=== PATIENT | male | born 1960 | race Caucasian/White ===

== ENCOUNTER → 2018-07-13 | Outpatient (CLI) | payer OTHER ==
[~2018-07-13] VITALS: Ht 175.3 cm; Wt 81.2 kg
[~2018-07-13] MED LIST: ASPIR 8181 MG PO; FISH OIL 1,001000 M2 PO; GARLIC1 EACH PO; IBUPROFEN 200200 M1 PO; VITAMIN D3400 UNIT PO
--- NOTE | ~2018-07-13 | HPC ---
[facility] [address] PAIN MANAGEMENT CONSULTATION Name: BETTYE JUNE Amandeep Room #: REG Paul Dial.#: [id number] Admission: 07/13/18 Attend Phys: Prosper Mathews DO Discharge: Date of : 64 Report #: [id number] THIS REPORT FOR: //name// CC: Jose Enrique Mathews DATE OF SERVICE: 07/13/2018 CHIEF COMPLAINT: Low back pain, left lower extremity pain with paresthesias. HISTORY OF PRESENT ILLNESS: As you know, the patient is a 58-year-old male who complains of low back pain, left lower extremity pain with paresthesias that presented after doing wilton at his daughter's home on 07/07/2018. He denies any other injury or trauma. The patient was seen in our clinic in 2011, undergoing an epidural injection under fluoroscopic guidance with 100% improvement in overall pain. He has been in his normal state of health until this incident on 07/07/2018. He states he has been using an inversion table on a p.r.n. basis, but this has not improved his symptoms. Due to lack of improvement with conservative treatment options, the patient returned to our clinic per the request of his PCP to be evaluated for lumbar radiculopathy. The patient indicates pain is periodic, describes the pain as shooting, sharp, numbness and tingling. Places current pain score 4/10, daily average at 4/10, worst pain has been is 9/10. The patient states that bending over, lifting, twisting exacerbates symptoms. Standing and repositioning tends to improve pain as well as his inversion table. He has been referred back to our clinic to trial a lumbar epidural injection under fluoroscopic guidance to address lumbar radicular symptoms that are recurrent. PAST MEDICAL HISTORY: None. PAST SURGICAL HISTORY: None. SOCIAL HISTORY: The patient denies tobacco, IV or illicit drug use. Admits to approximately 3 alcoholic beverages per day. 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 He is unaccompanied today. He is not in litigation in regards to pain. He is not service worker's compensation. REVIEW OF SYSTEMS: Positive for low back pain, left lower extremity pain with paresthesias. All other review of systems negative per 12-point review of systems other than those listed in history of present illness. Pain impact score 18/70, mild interference of daily activities secondary to pain. [facility] [address] [place] [address] PAIN MANAGEMENT CONSULTATION Name: BETTYE JUNE [facility] [id number] Admission: 07/13/18 Attend Phys: Prosper Mathews DO Discharge: Date of : 64 Report #: [id number] ALLERGIES: NO REPORTED DRUG ALLERGIES. CURRENT MEDICATIONS: Ibuprofen 200 mg 4 tabs twice a day. IMAGING: There is no new imaging available. PHYSICAL EXAMINATION: VITAL SIGNS: Blood pressure 122/72, pulse is 80, respiratory rate 16 and unlabored. The patient is 98% on room air. Height 5 feet 9 inch tall, weight 179 pounds, BMI calculated at 26.4. GENERAL: Well-developed, well-nourished, well-hydrated 58-year-old male. He appears his stated age. He is placing current pain score at 4/10. HEENT: Normocephalic, atraumatic. Pupils equal, round, reactive to light. Extraocular muscles are intact. Sclerae nonicteric without injection. NEUROLOGIC: Cranial nerves 2-12 grossly intact. Speech fluent. The patient deemed an excellent historian. LUNGS: Clear, no wheeze, rhonchi or rales. CARDIOVASCULAR: Regular. No appreciable gallop, no rub. ABDOMEN: Soft, nontender, nondistended, normoactive bowel sounds. EXTREMITIES: Show no clubbing, no cyanosis, no edema. MUSCULOSKELETAL: Lower extremity strength is equal and symmetrical 5/5, intact to light touch from L1 through S2 dermatomes. Seated straight leg raising negative. Supine straight leg raising positive. Marcial's test negative. Ankle clonus negative. Babinski is negative. There is some palpatory tenderness over the paraspinal musculature on the left, none on the right. No spinous process tenderness. ASSESSMENT: 1. Symptomatic lumbar radiculopathy. 2. Myofascial pain. 3. Muscle spasms of the lower lumbar spine. PLAN: 1. The patient has returned today in followup visit with recurrent lumbar radicular symptoms. The patient's distribution of symptoms appears similar to what they were in 2012. The patient and I discussed the exacerbating factor of his pain which was wilton his daughter's home. There was no other specific injury or trauma. In fact, during this activity, he did not notice any increasing pain until the end of the day and this was just due to repetitive motion. We discussed treatment options for lumbar radiculopathy today, these are the following discussions we had. We discussed physical therapy, stretching exercise, core strengthening as a treatment option. The patient states he has reinitiated his physical therapy from 6 years ago and has begun to utilize this in conjunction with his inversion [address] [address] PAIN MANAGEMENT CONSULTATION Name: BETTYE JUNE Room #: REG CLPaul Dial#: [id number] Admission: 07/13/18 Attend Phys: Prosper Mathews DO Discharge: Date of : 64 Report #: [id number] table, but is not noticing improvement. We encouraged him to continue this as this may improve his symptoms more rapidly. We discussed medication management with the addition of a neuropathic pain medication and a consistent nonsteroidal anti-inflammatory. We discussed lumbar epidural injections for which the patient received 100% improvement in overall pain lasting for 6 years. We discussed a spinal cord stimulator therapy and surgical options. After reviewing the risks and benefits of all the proposed treatment options, the patient chose to undergo epidural injection under fluoroscopic guidance. The patient was advised that third libertarian payer restrictions require that authorization be obtained before the patient could undergo an epidural injection. We will begin the authorization process immediately. I did advise the patient this could take anywhere from 4-7 working days and we will contact the patient once this has been approved, so that we can have him return to undergo an epidural injection. 2. No medication changes made at today's visit. The patient to continue current medical therapy as previously prescribed. 3. We will see the patient back in followup visit once we have achieved authorization to undergo epidural injection. <ELECTRONICALLY SIGNED> By: Prosper Mathews DO 07/19/18 1300 [id number] Prosper Mathews, DO /nt
[2018-07-13 13:12] VITALS: BP 122/72
== END ==
LOC: PAIN 10:09
DX: M54.16 Radiculopathy, lumbar region (principal); M62.830 Muscle spasm of back; Z79.899 Other long term (current) drug therapy

== ENCOUNTER → 2018-07-20 | Outpatient (CLI) | payer OTHER ==
[~2018-07-20] VITALS: Ht 175.3 cm; Wt 82.1 kg
--- NOTE | ~2018-07-20 | HPC ---
[address] [address] PAIN MANAGEMENT CONSULTATION Name: BETTYE JUNE Room #: REG [facility] [id number] Admission: 07/20/18 Attend Phys: Prosper Mathews DO Discharge: Date of : 64 Report #: [id number] THIS REPORT FOR: //name// CC: SAUD Mathews DATE OF SERVICE: 07/20/2018 REFERRING PHYSICIAN: Saud Martin MD CHIEF COMPLAINT: Low back pain, left lower extremity pain and paresthesias. HISTORY OF PRESENT ILLNESS: As you know, the patient is a very pleasant 58-year-old male who returns today in followup visit to undergo the first in a series of epidural injections under fluoroscopic guidance to address low back pain, left lower extremity pain and paresthesias. The patient indicates his original back pain began after doing wilton in his daughter's home on 07/07/2018. He was subsequently referred to our clinic, diagnosed with lumbar radiculopathy secondary to the displacement of a lumbar intervertebral disk. He was established today's appointment to undergo first in a series of epidural injections under fluoroscopic guidance to address lumbar radicular symptoms. He has received authorization through his third alliance party payer to undergo the procedure today. He returns with a pain level of approximately 2/10. States his pain is shooting and sharp in sensation, exacerbated with bending, lifting, twisting, improves with medications and standing still. He returns with authorization to undergo epidural injection under fluoroscopic guidance. ALLERGIES: None. CURRENT MEDICATIONS: Aspirin 81 mg per day, cholecalciferol 400 units per day, garlic 1 tab per day, omega-3 fish oil 1 tab per day, ibuprofen 200 mg 2 tabs 3 times a day. SOCIAL HISTORY: The patient denies tobacco, IV or illicit drug use. Admits to approximately 3 alcoholic beverages per day. 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 He is unaccompanied today. IMAGING: No new imaging available. PHYSICAL EXAMINATION: VITAL SIGNS: Blood pressure 118/82, pulse 75, respiratory rate 16 and unlabored. The patient is 99% on room air. Height 5 feet 9 inches tall, weight 82 kilograms. GENERAL: Well-developed, well-nourished, well-hydrated 58-[place] [address] PAIN MANAGEMENT CONSULTATION Name: BETTYE JUNE Room #: REG [facility]#: [id number] Admission: 07/20/18 Attend Phys: Prosper Mathews DO Discharge: Date of : 64 Report #: [id number] appearing stated age, placing current pain score at 2/10. HEENT: Normocephalic, atraumatic. Pupils equal, round, reactive to light. EXTREMITIES: Show no clubbing, no cyanosis, no edema. MUSCULOSKELETAL: Lower extremity strength remains symmetrical at 5/5. Muscle bulk and tone equal and symmetrical in lower extremities. Seated straight leg raising negative. Supine straight leg raising positive. Marcial's test negative. Modified Gaenslen's positive for axial low back pain. Ankle clonus negative. Babinski is negative. ASSESSMENT: 1. Symptomatic lumbar radiculopathy. 2. Displacement of lumbar intervertebral disk with radiculopathy. 3. Myofascial pain. 4. Chronic intractable pain. PLAN: 1. The patient has returned today in followup visit having received precertification to undergo a lumbar epidural injection under fluoroscopic guidance. The patient has been advised of the risks and the benefits of this procedure. These risks include but are not necessarily limited to bleeding, bruising, infection, worsening pain, no relief of pain, also risk of temporary or permanent muscle weakness, temporary or permanent nerve damage, possible paralysis and . The patient states understood and wished to proceed. 2. No medication changes made at today's visit. The patient will continue current medical therapy as previously prescribed. 3. We will see the patient back in followup visit on an as needed basis for the possible next in the series of epidural injections. PROCEDURE NOTE DESCRIPTION OF PROCEDURE: L5-S1 left paramedian epidural steroid injection under fluoroscopic guidance. This is the first procedure of the first series that the patient is undergoing. After obtaining written consent, the patient was taken back to the fluoroscopy suite, placed in a prone position with pillow under the abdomen to decrease lumbar lordosis. The skin overlying the lumbosacral area was then prepped and draped in aseptic fashion. The L5-S1 vertebral interspace was then identified by AP fluoroscopy. The skin and subcutaneous tissue overlying the target site of injection was anesthetized with 3 mL 1% lidocaine. A(n) 20-gauge 3-1/2 inch Tuohy needle was then advanced under fluoroscopic guidance towards the epidural space using a left paramedian approach. The epidural space was identified using loss of resistance to air technique. After negative aspiration for heme or cerebrospinal fluid, a total of 1 mL [address] [address] PAIN MANAGEMENT CONSULTATION Name: BETTYE JUNE Room #: NIKIA Dial#: [id number] Admission: 07/20/18 Attend Phys: Prosper Mathews DO Discharge: Date of : 64 Report #: [id number] Omnipaque was injected. A lumbar epidurogram was confirmed using both AP and lateral fluoroscopy. After negative aspiration for heme or cerebrospinal fluid, 5 mL of a solution containing 2 mL 40 mg per mL, 80 mg total triamcinolone, 3 mL of lidocaine 1% was injected in increments. Contrast spread was noted in the posterior epidural space. The needle was then retracted approximately half way and needle tract flushed with 1 mL of 1% lidocaine. Needle was then removed. There were no apparent sensory or motor deficits in the lower extremity following the procedure. A sterile bandage was placed over the injection site. The heart rate, pulse, oximetry and blood pressure were continuously monitored after the procedure. There were no apparent complications. The patient tolerated the procedure well and was carefully escorted to the recovery room in stable condition. There were no apparent complications. After meeting discharge criteria, the patient was then discharged home. <ELECTRONICALLY SIGNED> By: Prosper Mathews DO 07/26/18 0727 [id number] Prosper Mathews DO /nt
[2018-07-20 12:30] VITALS: BP 118/82
== END | disposition home or self-care (01) ==
LOC: PAIN 06:56
DX: M51.16 Intervertebral disc disorders with radiculopathy, lumbar region (principal); M79.10 Myalgia, unspecified site; G89.29 Other chronic pain; Z79.82 Long term (current) use of aspirin; Z79.899 Other long term (current) drug therapy